=== PATIENT | female | born 1935 | race Caucasian/White ===

== ENCOUNTER → 2017-07-27 | Outpatient (CLI) | payer MEDICARE, OTHER ==
[~2017-07-27] MED LIST: AMLO5; ASPI81EC PO; ATOR20 PO; Aspir 8181 MG PO; CYCL10 PO; FLUT110OIA; HYDACE5 PO; IBUP600 PO; IBUP800; IRBE150; METO25ER PO; METO50ER; NAPR500 PO; POTA10T; PRED20 PO; RAMI5 PO; TRIHYD253A; TRIHYD253A PO; TRIHYD253B PO
== END | disposition home or self-care (01) ==
LOC: LAB EV 09:59
DX: N90.7 Vulvar cyst (principal)
CPT/HCPCS: 87070; 87077; 87147; 87186; 87205

== ENCOUNTER → 2017-09-27 | Outpatient (CLI) | payer MEDICARE, OTHER | END | disposition home or self-care (01) | LOC: LAB EV 16:14 | DX: L73.9 Follicular disorder, unspecified (principal) | CPT/HCPCS: 87070; 87205 ==

== ENCOUNTER 2017-12-07 07:27 | Day surgery (SDC) | payer MEDICARE, OTHER ==
[~2017-12-07] VITALS: Ht 162.6 cm; Wt 72.6 kg
== END 2017-12-07 09:31 | disposition home or self-care (01) ==
LOC: ORSCSDS 07:27
PROVIDERS: Ophthalmology
PROC: 08RJ3JZ Replacement of Right Lens with Synthetic Substitute, Percutaneous Approach (ICD-10-PCS; principal; 2017-12-07 09:00)
DX: H25.11 Age-related nuclear cataract, right eye (principal); I10 Essential (primary) hypertension; F32.9 Major depressive disorder, single episode, unspecified; E78.5 Hyperlipidemia, unspecified; I25.10 Atherosclerotic heart disease of native coronary artery without angina pectoris; Z87.891 Personal history of nicotine dependence; Z79.82 Long term (current) use of aspirin; Z79.899 Other long term (current) drug therapy
CPT/HCPCS: J2250; J3010; J3301; V2632

== ENCOUNTER → 2019-08-14 | Outpatient (CLI) | payer MEDICARE, OTHER | END | disposition home or self-care (01) | LOC: LAB 11:49 → LAB SHORT 11:49 | DX: L02.224 Furuncle of groin (principal) | CPT/HCPCS: 87070; 87077; 87147; 87186; 87205 ==

== ENCOUNTER 2021-02-20 19:13 | Observation (INO) | payer MEDICARE, OTHER ==
[~2021-02-20] VITALS: Ht 162.6 cm; Wt 69.5 kg
[~2021-02-20 19:13] MED LIST changes: -ASPI325EC PO; -CLOP75 PO; -HYDCHL25 PO; -TRIA50 PO
[2021-02-20 19:52] LABS: BASOPHILS ABSOLUTE AUTO 0.04 K/mm3 (0.00-0.23); BASOPHILS PERCENT AUTO 0 % (0-2); EOSINOPHILS ABSOLUTE AUTO 0.02 K/mm3 (0.00-0.68); EOSINOPHILS PERCENT AUTO 0 % (0-6); Hemoglobin 15.3 g/dL (11.5-16.0); IMMATURE GRAN ABSOLUTE AUTO 0.05 K/mm3 (0.00-0.10); IMMATURE GRAN PERCENT AUTO 0 % (0-1); LYMPHOCYTES ABSOLUTE AUTO 1.35 K/mm3 (0.84-5.20); LYMPHOCYTES PERCENT AUTO 9 % (21-46); MONOCYTES ABSOLUTE AUTO 0.83 K/mm3 (0.16-1.47); MONOCYTES PERCENT AUTO 6 % (4-13); Mean Corpuscular HGB 29.8 pg (26.0-34.0); Mean Corpuscular HGB Conc 33.3 g/dL (31.5-36.5); Mean Corpuscular Volume 90 fL (80-100); Mean Platelet Volume 10.3 fL (9.1-12.4); NEUTROPHILS ABSOLUTE AUTO 12.08 K/mm3 (1.96-9.15); NEUTROPHILS PERCENT AUTO 84 % (41-73); Platelet Count 253 K/mm3 (150-400); RDW Coefficient Variation 13.7 % (11.7-14.2); RDW Standard Deviation 45.3 fL (35.1-46.3); Red Blood Cell Count 5.14 M/mm3 (3.80-5.20); White Blood Cell Count 14.37 K/mm3 (4.00-11.30)
[2021-02-20 20:14] LABS: Alanine Aminotransfer (ALT/SGP 23 U/L (12-78); Albumin, Blood 4.1 g/dL (3.4-5.0); Alk Phos 95 U/L (50-136); Anion Gap 8 mmol/L (6-16); Aspartate Aminotrans (AST/SGOT 20 U/L (12-37); Bilirubin, Total 0.7 mg/dL (0.1-1.0); Blood Urea Nitrogen 9 mg/dL (8-24); Bun/Creatinine Ratio 16.4 (12.0-20.0); CO2, Blood 23 mmol/L (21-32); Calcium, Blood 9.3 mg/dL (8.5-10.1); Chloride, Blood 102 mmol/L (98-108); Creatinine, Blood 0.55 mg/dL (0.40-1.00); Globulin, Blood 4.1 g/dL (2.2-4.0); Glomerular Filtration Rate >60 (60-); Glucose, Blood 113 mg/dL (70-99); Potassium, Blood 3.7 mmol/L (3.5-5.5); Sodium, Blood 133 mmol/L (136-145); Total Protein, Blood 8.2 g/dL (6.4-8.2)
[2021-02-20 23:49] LABS: Source, Urine Clean Catch
[2021-02-20 23:54] LABS: Bilirubin, Urine Neg (Neg); Blood, Urine Neg (Neg); Glucose Qualitative, Urine Neg (Neg); Ketones, Urine Neg (Neg); Leukocyte Esterase, Urine 2+ (Neg); Nitrite, Urine Neg (Neg); Protein, Urine Neg (Neg); Specific Gravity, Urine 1.005 (1.003-1.022); Urobilinogen, Urine NORM (Normal)
[2021-02-21 00:05] LABS: Appearance, Urine Clear (Clear); Color, Urine Yellow (P-Yellow)
[2021-02-21 00:06] LABS: Bacteria Few /hpf; Red Blood Cells, Urine Not Seen /hpf (0-2); Squamous Epithelial Cells Few /hpf (Few)
[2021-02-21 03:43] LABS: Anion Gap 7 mmol/L (6-16); Blood Urea Nitrogen 10 mg/dL (8-24); Bun/Creatinine Ratio 14.2 (12.0-20.0); CO2, Blood 25 mmol/L (21-32); Calcium, Blood 8.7 mg/dL (8.5-10.1); Chloride, Blood 102 mmol/L (98-108); Creatinine, Blood 0.71 mg/dL (0.40-1.00); Glomerular Filtration Rate >60 (60-); Glucose, Blood 140 mg/dL (70-99); Potassium, Blood 3.6 mmol/L (3.5-5.5); Sodium, Blood 134 mmol/L (136-145)
--- NOTE | 2021-02-21 05:57 | NUR ---
SHIFT SUMMARY: PT IS ALERT AND ORIENTED. PT IS CALM AND COOPERATIVE WITH CARE. PT CALLS APPROPRIATELY. PT IS A STANDBY ASSIST TO THE BATHROOM. PT DENIES PAIN, NAUSEA, VOMITING, AND SOB. PT SLEPT MUCH OF THE MORNING AFTER ADMISSION. NO ACUTE CHANGES OR COMPLICATIONS. BED IN LOW POSITION, CALL LIGHT WITHIN REACH. WILL CONTINUE TO MONITOR.
--- NOTE | 2021-02-21 13:08 | NUR ---
Echocardiogram completed.
[2021-02-21] MEDS ORDERED: ASPI325EC PO (17:36)
[2021-02-21] MEDS ORDERED: TRIA50 PO (17:37)
[2021-02-21] MEDS ORDERED: HYDCHL25 PO (17:38)
[2021-02-21] MEDS ORDERED: CLOP75 PO (17:38)
--- NOTE | 2021-02-21 18:10 | NUR ---
Pt discharged. D/C instructions reviewed and discussed. Pt's daughter is bedside and also asking questions. No other concerns for pt or daughter. IV taken out.
== END 2021-02-21 18:13 | disposition home or self-care (01) ==
LOC: ER 19:13 → MEDS 19:14 → ERHOLD 19:14 → MEDS 02-21 03:07
PROVIDERS: Emergency Medicine; Family Medicine; Physician Assistant; ADMIT Internal Medicine
DX: I63.332 Cerebral infarction due to thrombosis of left posterior cerebral artery (principal); G81.91 Hemiplegia, unspecified affecting right dominant side; H53.8 Other visual disturbances; R41.3 Other amnesia; I10 Essential (primary) hypertension; E78.5 Hyperlipidemia, unspecified; J44.9 Chronic obstructive pulmonary disease, unspecified; Z79.82 Long term (current) use of aspirin; Z95.1 Presence of aortocoronary bypass graft; Z87.891 Personal history of nicotine dependence; R82.71 Bacteriuria; R82.79 Other abnormal findings on microbiological examination of urine
CPT/HCPCS: 36415; 70450; 70496; 70498; 71045; 80048; 80053; 81001; 83605; 83735; 84145; 84484; 85025; 87086; 93005; 93010; 93306; 96372; 97110; 97161; 97530; 99285-25; A9270; G0378; J1650; J7120; Q9967

== ENCOUNTER → 2021-02-20 | Outpatient (CLI) | payer MEDICARE, OTHER ==
[~2021-02-20] MED LIST changes: +ASPI325EC PO; +CLOP75 PO; +HYDCHL25 PO; +TRIA50 PO
== END | disposition home or self-care (01) ==
LOC: PLD 18:50 → LAB SHORT 18:50
DX: R82.79 Other abnormal findings on microbiological examination of urine (principal)
CPT/HCPCS: 87086